=== PATIENT | male | born 1965 | race Caucasian/White ===

== ENCOUNTER 2019-01-16 08:35 | Day surgery (SDC) | payer MEDICAID ==
[~2019-01-16] VITALS: Ht 175.3 cm; Wt 86.2 kg
[2019-01-16] MEDS ORDERED: OXYMETAZOLINE HCL 0.05% NASAL SPRAY NS ONE (10:30)
[2019-01-16] MEDS ORDERED: NS 1000 ML IV.SOLN IV ONE ×2 (10:30)
[2019-01-16] MEDS ORDERED: MUPIROCIN 2% TOPICAL OINTMENT 22 GM TP ONE (10:30)
[2019-01-16] MEDS ORDERED: LIDOCAINE 1% 10 MG/ML, 20 ML MDV INJ ONE (10:30)
[2019-01-16] MEDS ORDERED: DEXAMETHASONE SOD PHOSPHATE 10 MG/ML VIAL IVP ONE (10:30)
[2019-01-16] MEDS ORDERED: fentaNYL CITRATE 250 MCG/5 ML AMP IV ONE (10:30)
[2019-01-16] MEDS ORDERED: MIDAZOLAM HCL 5 MG/5 ML VIAL IVP ONE (10:30)
[2019-01-16] MEDS ORDERED: WATER FOR IRRIGATION,STERILE 1,000 ML IRRIG.SOLN IR ONE (10:30)
[2019-01-16] MEDS ORDERED: LR 1,000 ML IV.SOLN IV ONE (10:30)
[2019-01-16] MEDS ORDERED: ONDANSETRON HCL 4 MG/2 ML VIAL IVP ONE (10:30)
[2019-01-16] MEDS ORDERED: ROCURONIUM BROMIDE 10 MG/ML (ZEMURON) IV ONE (10:30)
[2019-01-16] MEDS ORDERED: SEVOFLURANE 15 MIN GAS INH ONE (10:30)
[2019-01-16] MEDS ORDERED: EPINEPHrine 1 MG/ML AMP IV ONE (10:30)
[2019-01-16] MEDS ORDERED: PROPOFOL 200MG/ 20ML VIAL (DIPRIVAN) IV ONE (10:30)
[2019-01-16] MEDS ORDERED: BACITRACIN ZINC 15 GM TOPICAL OINTMENT TP ONE (10:30)
[2019-01-16] MEDS ORDERED: LR 1,000 ML IV SCH (11:32)
[2019-01-16] MEDS ORDERED: METOCLOPRAMIDE HCL 10 MG/2 ML VIAL IVP PRN (11:45)
[2019-01-16] MEDS ORDERED: MORPHINE 4 MG/ML INJ. SYRINGE IVP PRN ×3 (11:45)
[2019-01-16 15:09] VITALS: BP_SYST 136
== END 2019-01-16 17:30 | disposition home or self-care (01) ==
LOC: SDS 08:35 → SMU 08:35 → SDS 17:30
PROVIDERS: ATTEND Otolaryngology
DX: J34.2 Deviated nasal septum (principal); J32.9 Chronic sinusitis, unspecified; J34.89 Other specified disorders of nose and nasal sinuses; Z79.899 Other long term (current) drug therapy; J34.3 Hypertrophy of nasal turbinates
CPT/HCPCS: 30140; 30520; 31255; 31256; 31298; 87070 ×2; 87075; 87101; 88302; 88305; 88311; C1726; J0171; J1100; J2001; J2250; J2405; J2704; J3010; J7030; J7120